=== PATIENT | female | born 1965 | race American Indian/Alaskan Native ===

== ENCOUNTER 2018-06-07 14:05 | Outpatient (CLI) | payer BC ==
--- NOTE | 2018-06-07 15:00 | Mammography Report ---
Bilateral mammogram: Compared to 11/06/15. CAD study utilized. Findings: Scattered glandular parenchyma bilaterally. Focal new asymmetry measuring 4 mm in diameter upper posterior left breast. No microcalcifications. Benign calcifications. New subareolar density right breast. Impression: Focal asymmetry upper posterior left breast and subareolar area right breast. Recommend spot compression and sonographic examination. BI-RADS CATEGORY: 0 = Needs additional imaging evaluation ACR BI-RADS MAMMOGRAPHIC CODES: 0 = Needs additional imaging evaluation; 1 = Negative; 2 = Benign; 3 = Probably benign; 4 = Suspicious; 5 = Malignant; 6 = Known biopsy-proven malignancy COMMENT: 1. Dense breast tissue, i.e., adenosis, fibrocystic changes, etc., may obscure an underlying neoplasm. 2. Approximately 10% of cancers are not detected with mammography. 3. A negative mammography report should not delay biopsy if a clinically suspicious mass is present. COMMENT: Patient follow-up letters are generated in Book[employer]Table.
== END 2018-06-07 14:06 | disposition home or self-care (01) ==
LOC: SPVWC 14:05
PROVIDERS: ATTEND Obstetrics & Gynecology
DX: Z12.31 Encounter for screening mammogram for malignant neoplasm of breast (principal)
CPT/HCPCS: 77067